=== PATIENT | female | born 1965 | race Hispanic/Latino ===

== ENCOUNTER 2017-04-30 16:26 | Emergency (ER) | payer MEDICAID ==
[2017-04-30] MEDS ORDERED: FLEXERIL PO ONE (19:19)
[2017-04-30] MEDS ORDERED: TORADOL IM ONE (19:19)
--- NOTE | 2017-04-30 19:35 | Emergency Department Report ---
HPI - General Chief Complaint: Back Pain/Injury Time Seen by Provider: 04/30/17 19:18 - HPI HPI: She is a 52-year-old female presents to ED complaining of lower mid lumbar back pain 3 days. Patient states she did not injure or fall on her back recently. Patient states pain radiates down her thighs. Patient states he was lifting some heavy boxes of tomato cans prior to the beginning of throbbing, aching, radiating down thighs low back pain. Patient states she is able to walk and ambulate appropriately. He denies fevers/chills/nausea/vomiting/abdominal pain/ chest pain or any other problems. ED Past Medical Hx - Past Medical History Previous Medical History?: Yes Hx Hypertension: Yes Hx COPD: Yes - Surgical History Past Surgical History?: No - Social History Smoking Status: Current Every Day Smoker Substance Use Type: None - Medications Home Medications: Home Medications Medication Instructions Recorded Confirmed Last Taken Type Cyclobenzaprine [Flexeril 10 MG 10 mg PO QHS #30 tablet 04/30/17 Unknown Rx TAB] Diclofenac Potassium 50 mg PO BID #50 tablet 04/30/17 Unknown Rx ED Review of Systems ROS: Stated complaint: BACK Other details as noted in HPI Constitutional: denies: chills, fever Eyes: denies: eye pain, eye discharge, vision change ENT: denies: ear pain, throat pain Respiratory: denies: cough, shortness of breath, wheezing Cardiovascular: denies: chest pain, palpitations Endocrine: no symptoms reported Gastrointestinal: denies: abdominal pain, nausea, diarrhea Genitourinary: denies: urgency, dysuria, discharge Musculoskeletal: back pain. denies: joint swelling, arthralgia Skin: denies: rash, lesions Neurological: denies: headache, weakness, paresthesias Psychiatric: denies: anxiety, depression Hematological/Lymphatic: denies: easy bleeding, easy bruising Physical Exam - Physical Exam Vital Signs: Vital Signs 04/30/17 16:38 Temperature 98.6 F Pulse Rate 83 Respiratory 20 Rate Blood Pressure 146/95 O2 Sat by Pulse 100 Oximetry Physical Exam: GENERAL: Alert and oriented x3, no apparent distress, Normal Gait, atraumatic. HEAD: Head is normocephalic and a-traumatic. EYES: Extra ocular muscles are intact. Pupils are equal, round, and reactive to light and accommodation. LUNGS: Symetrical with respiration, No wheezing, no rales or crackles, CTAB. HEART: S1, S2 present, regular rate and rhythm without murmur, no rubs, no gallops. Non tender to palpation ABDOMEN: No organomegaly was noted,Positive bowel sounds, soft, and non- distended. . Nontender to palpation on all Quadrants, NO CVA tenderness. BACK: Full range of motion, lower latissimus dorsi muscles mild tenderness to palpation, no spinal tenderness. No swelling, no bleeding, no erythema EXTREMITIES/MUSCULOSKELETAL: No cyanosis, clubbing, rash, lesions or edema. Full ROM bilaterally. UE/LE Pulses 2+ bilaterally. LE and UE 5+ strength bilaterally, straight leg raise positive bilaterally. NEUROLOGIC: The patient is cooperative with no focal neurologic deficits. Cranial nerves II through XII are grossly intact. Normal speech. SKIN: Warm and dry, No lesions, No ulceration or induration present. ED Course Vital Signs 04/30/17 16:38 Temperature 98.6 F Pulse Rate 83 Respiratory 20 Rate Blood Pressure 146/95 O2 Sat by Pulse 100 Oximetry ED Medical Decision Making - Medical Decision Making 51-year-old female presents with chronic lumbar radiculopathy/acute lumbar strain ED course: She received 1 dose of Flexeril and Toradol in the ED Discussed patient to apply heat pads to her back 3 times a day. Discussed with patient to rest and no heavy lifting. Discussed will go home with trial of muscle relaxants and pain medication. Discussed to follow up with primary care physician and neurologist referral. Vital signs are normal patient is in no acute distress. Critical care attestation.: If time is entered above; I have spent that time in minutes in the direct care of this critically ill patient, excluding procedure time. ED Disposition Clinical Impression: Lumbar radiculopathy, chronic, Strain of muscle, fascia and tendon of lower back, initial encounter Disposition: - TO HOME OR SELFCARE Is pt being admited?: No Does the pt Need Aspirin: No Condition: Stable Instructions: Muscle Strain (ED) Additional Instructions: Follow-up which her primary care physician. If worsening symptoms return to ED for a reevaluation Prescriptions: Cyclobenzaprine [Flexeril 10 MG TAB] 10 mg PO QHS #30 tablet Diclofenac Potassium 50 mg PO BID #50 tablet Referrals: MEDINA,EL, STRIPE MATCHER [Primary Care Provider] - 3-5 Days OMI RENTERIA MD [Staff Physician] - 3-5 Days HARI PETERSEN MD [Referring] - 3-5 Days Forms: Work/School Release Form(ED) Time of Disposition: 19:43
[2017-04-30 20:00] VITALS: BP 148/97
== END 2017-04-30 19:59 | disposition home or self-care (01) ==
LOC: ED 16:26
DX: S39.012A Strain of muscle, fascia and tendon of lower back, initial encounter (principal); M54.16 Radiculopathy, lumbar region; J44.9 Chronic obstructive pulmonary disease, unspecified; I10 Essential (primary) hypertension; F17.200 Nicotine dependence, unspecified, uncomplicated; X50.0XXA Overexertion from strenuous movement or load, initial encounter; Y93.89 Activity, other specified; Y99.9 Unspecified external cause status; Y92.89 Other specified places as the place of occurrence of the external cause
CPT/HCPCS: 96372; 99282; J1885